=== PATIENT | female | born 1975 | race African-American/Black ===

== ENCOUNTER 2021-05-18 04:24 | Day surgery (SDC) | payer OTHER ==
[2021-05-14 11:26] VITALS: BMI 29.3
[2021-05-18] MEDS ORDERED: BUPIVACAINE HCL/PF 0.5% (5MG/ML) 10 ML VIAL ONE (07:08)
[2021-05-18] MEDS ORDERED: LIDOCAINE HCL 2% (20ML MULTI-DOSE VIAL) ONE (07:08)
[2021-05-18] MEDS ORDERED: KETAMINE HCL 200 MG/20 ML VIAL ONE (07:09)
[2021-05-18] MEDS ORDERED: MIDAZOLAM HCL 2 MG/2 ML SINGLE DOSE VIAL ONE (07:09)
[2021-05-18] MEDS ORDERED: PROPOFOL 20 ML ONE ×4 (07:10→08:08)
[2021-05-18] MEDS ORDERED: ACETAMINOPHEN INJECTION 200 ML IVPB ONE (07:40)
[2021-05-18] MEDS ORDERED: LIDOCAINE HCL 2% (50ML VIAL) SQ ONE (07:45)
[2021-05-18] MEDS ORDERED: BUPIVACAINE HCL/PF 0.5% (5MG/ML) 10 ML VIAL IJ ONE (07:45)
[2021-05-18] MEDS ORDERED: ceFAZolin SODIUM 1 GM VIAL IVPB ONE (07:50)
[2021-05-18] MEDS ORDERED: DEXAMETHASONE 4 MG TABLET (FP) NR ONE (08:48)
[2021-05-18 09:58] VITALS: BP 120/80; PULSE 54; TEMP 97.3
== END 2021-05-18 10:37 | disposition home or self-care (01) ==
LOC: JASU-SURG 04:24
PROVIDERS: ATTEND Podiatrist Foot Surgery
PROC: 0QSN04Z Reposition Right Metatarsal with Internal Fixation Device, Open Approach (ICD-10-PCS; principal; 2021-05-18 07:30)
DX: M20.21 Hallux rigidus, right foot (principal)
CPT/HCPCS: 73630-TC-RT-FY; 81025; 88304-TC; 88311-TC